=== PATIENT | male | born 1990 | race Caucasian/White ===

== ENCOUNTER 2024-07-19 22:35 | Emergency (ER) | payer OTHER, SELFPAY ==
[2024-07-19 22:38] VITALS: BP 106/70; PULSE 81; RESP 18; TEMP 36.5; O2SAT 98; BMI 21.7
--- NOTE | 2024-07-19 22:44 | EKG_ITS ---
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
--- NOTE | 2024-07-19 22:44 | DI.RAD.S_ITS ---
PROCEDURE: XR CHEST 1V INDICATIONS: chest pain TECHNIQUE: One view of the chest was acquired. COMPARISON: None. FINDINGS: Surgical changes and devices: Sternotomy. Lungs and pleura: Lungs are clear. No pleural effusions or pneumothorax. Mediastinum: Mediastinal contours appear normal. Heart size is normal. Bones and chest wall: No suspicious bony lesions. Overlying soft tissues appear unremarkable. IMPRESSION: No acute cardiopulmonary abnormality is seen. Dictated by: Dez Hong M.D. on 07/19/2024 at 23:08 Approved by: Dez Hong M.D. on 07/19/2024 at 23:11
[2024-07-19 23:00] VITALS: PULSE 65; RESP 16; O2SAT 98
--- NOTE | 2024-07-19 23:09 | ED_ITS ---
HPI - Chest Pain General Chief Complaint: Chest Pain Stated Complaint: hx heart surgery, chest pain similar to post surg Time Seen by Provider: 07/19/24 23:09 Source: patient Mode of arrival: Ambulatory Limitations: no limitations History of Present Illness HPI narrative: 33-year-old male with a past medical history of aortic bicuspid valve replacement in February 2023 at [facility] presenting for chest pain. States it started this morning, states it felt similar to when he was recovering from his heart surgery, he describes it as a burn/tight muscle that is persistent does endorse some nausea but no vomiting. He denies any other symptoms such as headache visual disturbances fever chills nausea vomiting abdominal pain or any other GI/ symptoms time. 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 Denies any trauma falls denies any excessive pushing pulling. Related Data Allergies Allergy/AdvReac Type Severity Reaction Status Date / Time No Known Drug Allergies Allergy Verified 07/19/24 22:38 Review of Systems Review of Systems Narrative: General: Denies fever, chills, weight loss HEENT: Denies headache, eye drainage, eye irritation, head trauma, sore throat, voice change Cardiovascular: Positive chest pain, denies palpitations, tachycardia Respiratory: Denies any shortness of breath, cough, wheeze, stridor GI/: Denies any abdominal pain, nausea, vomiting, diarrhea, bright red blood per rectum, melanotic stools, urinary frequency, urinary retention, dysuria, hematuria MSK: Denies any joint pain, muscle pains, swelling Skin: Denies any rashes, lesions, discoloration Neuro: Denies any headache, lightheadedness, dizziness, fainting, weakness Psych: Denies SI/HI Patient History Social History Smoking Status: Never smoker Smoking Status: Never smoker Exam Narrative Exam Narrative: General: Cooperative, well-developed, not in acute distress HEENT: Normocephalic, atraumatic, PERRLA, normal sclera, eyelids normal Neck: Active full range of motion, atraumatic Chest: Reproducible chest pain on palpation, midline scar to the chest consistent with a history of cardiac surgery Normal to inspection, negative crepitus, no overlying erythema ecchymosis Respiratory: Normal respiratory effort, not in acute respiratory distress, clear to auscultation bilaterally negative cough, wheeze, tachypnea, rhonchi, rales Cardiology: Regular rate rhythm negative gallop, murmur, rubs GI/: No tenderness to palpation, soft, non rigid, normal to inspection, exam deferred MSK: Full active range of motion in all 4 extremities, atraumatic, no tenderness to palpation of any bony prominences Skin: No rashes or lesions noted Neuro: Alert awake oriented x3, moves all 4 extremities spontaneously, cranial nerves intact, able to answer all questions appropriately follows commands appropriately Psych: Cooperative, negative suicidal or homicidal ideations Initial Vital Signs Initial Vital Signs: Vital Signs Temperature 97.7 F 07/19/24 22:38 Pulse Rate 81 07/19/24 22:38 Respiratory Rate 18 07/19/24 22:38 Blood Pressure 106/70 07/19/24 22:38 Pulse Oximetry 98 07/19/24 22:38 Oxygen Delivery Method Room Air 07/19/24 22:38 Course Orders Ordered: ED Orders 07/19/24 22:44 XR chest 1V Stat EKG-12 Lead Stat 07/19/24 23:45 Complete Blood Count AUTO DIFF Stat Comprehensive Metabolic Panel Stat Lipase Stat Magnesium Stat NT-proBNP (BNP-Adult 18+) Stat PTT Partial Thromboplastin Marcelo Stat Prothrombin Time INR Stat Troponin & CK Cardiac Panel Stat 07/20/24 02:10 Trop I [Troponin I] Stat Discontinued Medications Aspirin (Aspirin 81 Mg Chew Tab) 324 mg PO NOW ONE Stop: 07/19/24 22:45 Last Admin: 07/20/24 00:21 Dose: Not Given Documented By: MARIA TERESA Vital Signs Vital signs: Vital Signs - 8 hr 07/19/24 22:38 07/19/24 23:00 07/19/24 23:29 Temperature 97.7 F Pulse Rate 81 65 Respiratory Rate 18 16 Blood Pressure 106/70 106/65 Pulse Oximetry 98 98 Oxygen Delivery Method Room Air 07/19/24 23:29 07/19/24 23:30 07/19/24 23:30 Temperature Pulse Rate 64 62 Respiratory Rate 17 20 Blood Pressure 112/66 Pulse Oximetry 97 97 Oxygen Delivery Method 07/20/24 00:00 07/20/24 00:00 07/20/24 00:30 Temperature Pulse Rate 59 L Respiratory Rate 18 Blood Pressure 107/66 105/66 Pulse Oximetry 97 Oxygen Delivery Method 07/20/24 00:30 07/20/24 01:00 07/20/24 01:00 Temperature Pulse Rate 60 63 Respiratory Rate 19 17 Blood Pressure 105/62 Pulse Oximetry 96 96 Oxygen Delivery Method 07/20/24 01:30 07/20/24 01:30 07/20/24 02:00 Temperature Pulse Rate 55 L Respiratory Rate 17 Blood Pressure 115/59 L 105/67 Pulse Oximetry 98 Oxygen Delivery Method 07/20/24 02:00 07/20/24 02:30 07/20/24 02:30 Temperature Pulse Rate 54 L 56 L Respiratory Rate 19 18 Blood Pressure 106/66 Pulse Oximetry 97 98 Oxygen Delivery Method MDM - Chest Pain Differential Diagnosis Differential diagnosis: Likely atypical chest pain, st elevation myocardial infarction, costochondritis, chest pain and other (ACS, pneumonia, electrolyte abnormality) Lab Data 07/19/24 23:45 07/19/24 23:45 Labs: Lab Results 07/19/24 07/20/24 Range/Units 23:45 02:10 WBC 5.7 (4.5-11.0) X10^3/uL RBC 4.86 (4.5-5.9) X10^6/uL Hgb 14.5 (13.5-17.5) g/dL Hct 42.2 (41-53) % MCV 86.9 (80-100) fL MCH 29.8 (26-34) PG MCHC 34.3 (30-36) % RDW 13.6 (11.6-14.8) % Plt Count 224 (150-400) X10^3/uL Neut % (Auto) 52.9 (50-75) % Lymph % (Auto) 32.6 (25-40) % Hughes % (Auto) 11.4 (3-14) % Eos % (Auto) 2.7 (2-4) % Baso % (Auto) 0.4 (0-2) % Neut # (Auto) 3000 (9073-6166) /uL Lymph # (Auto) 1900 (0507-5108) /uL Hughes # (Auto) 700 (0-900) /uL Eos # (Auto) 200 (0-450) /uL Baso # (Auto) 0 (0-100) /uL PT 17.2 H (9.4-12.5) SECONDS INR 1.5 H (0.9-1.3) APTT 42 H (25.1-36.5) SECONDS Sodium 141 (137-145) mmol/L Potassium 3.9 (3.4-5.1) mmol/L Chloride 106 (98-107) mmol/L Carbon Dioxide 28 (22-32) mmol/L BUN 12 (9-20) mg/dL Creatinine 1.10 (0.66-1.25) mg/dL Estimated GFR > 60 (>60) mL/min BUN/Creatinine Ratio 10.9 (6-22) Glucose 96 (70-100) mg/dL Calcium 9.5 (8.4-10.2) mg/dL Magnesium 1.9 (1.6-2.3) mg/dL Total Bilirubin 1.2 (0.2-1.3) mg/dL AST 27 (17-59) IU/L ALT 18 (<50) IU/L Alkaline Phosphatase 67 (38-126) U/L Total Creatine Kinase 57 (55-170) U/L Troponin I < 0.012 0.013 (0.01-0.034) ng/mL NT-Pro-B Natriuret Pep 20 (<125) pg/mL Total Protein 6.9 (6.3-8.2) g/dL Albumin 4.6 (3.5-5.0) g/dL Globulin 2.3 (1.7-4.1) g/dL Albumin/Globulin Ratio 2.0 (1.0-2.8) Lipase 94 (23-300) U/L Imaging Data Chest x-ray: Radiologist's Impression: [place] [address] XRay Report Signed Patient: Giorgio Ayala MR#: [id number] : 1990 Acct:[id number] Age/Sex: 33 / M Date of Service: 07/19/24 Loc: ED Accession Number: [id number] Procedure: XR chest 1V Ordering Provider: Winston Magallon D.O. PROCEDURE: XR CHEST 1V INDICATIONS: chest pain TECHNIQUE: One view of the chest was acquired. COMPARISON: None. FINDINGS: Surgical changes and devices: Sternotomy. Lungs and pleura: Lungs are clear. No pleural effusions or pneumothorax. Mediastinum: Mediastinal contours appear normal. Heart size is normal. Bones and chest wall: No suspicious bony lesions. Overlying soft tissues appear unremarkable. IMPRESSION: No acute cardiopulmonary abnormality is seen. ECG Data Interpretation: EKG interpreted ED physician sinus 60 beats per minute QTC [address] changes no STEMI MDM Narrative Medical decision making narrative: 33-year-old male with a history of bicuspid valve replacement in February 2023 at [facility] presenting for left-sided chest pain. He states it feels like when he was recovering from his chest surgery, states it feels like it is in his muscles, states that it started this morning, states that moving does make it worse, staying still makes it better. He has been compliant with his warfarin, aspirin and metoprolol. 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 Patient EKG nonischemic in nature, chest x-ray without any acute cardiopulmonary abnormality, patient troponin negative x2, patient lab work otherwise unremarkable, patient was offered admission here for stress test echo, however he states that he would rather follow up with his regional branch manager, he states that they did give him a call and have a follow up already scheduled, I informed him to give them a call to try to schedule a stress test echo a little sooner. He verbalized understanding of this and agrees to being discharged home with outpatient follow up, patient with a heart score of 1 Discharge Plan Departure Patient Disposition: Home Clinical Impression: Chest pain Instructions: DI for Chest Pain Activity Restrictions/Additional Instructions: Please follow up with your regional branch manager and your primary care doctor Please read the discharge instructions sheet carefully and bring all papers to all doctor follow-up visits, as it may contain information that your doctor may want to see. Disease processes change and evolve, if your symptoms worsen or if you develop any new symptoms that are concerning to you please return for evaluation. Your evaluation today does not show any evidence of any life- threatening/serious illnesses requiring admission to the hospital or surgery. Please follow-up with your doctor for re-evaluation in approximately 1 day. Seek immediate medical attention for any worrisome symptoms. *If you do not have a primary care provider please contact the [facility] Resource line at [phone]. They will ask some questions about your medical history and help get you set up with a doctor in the community. Stand Alone Forms: Patient Portal/API/Survey
[2024-07-19 23:29] VITALS: BP 106/65; PULSE 64; RESP 17; O2SAT 97
[2024-07-19 23:30] VITALS: BP 112/66; PULSE 62; RESP 20; O2SAT 97
[2024-07-20] VITALS: BP 107/66; PULSE 59; RESP 18; O2SAT 97
[2024-07-20 00:07] LABS: Add Manual Diff / Slide Review NO; Basophils Absolute Auto 0 /uL (0-100); Basophils Percent Auto 0.4 % (0-2); Eosinophils Absolute Auto 200 /uL (0-450); Eosinophils Percent Auto 2.7 % (2-4); Hematocrit 42.2 % (41-53); Hemoglobin 14.5 g/dL (13.5-17.5); Lymphocytes Absolute Auto 1900 /uL (1100-4500); Lymphocytes Percent Auto 32.6 % (25-40); Mean Corpuscular HGB Conc 34.3 % (30-36); Mean Corpuscular Hemoglobin 29.8 PG (26-34); Mean Corpuscular Volume 86.9 fL (80-100); Monocytes Absolute Auto 700 /uL (0-900); Monocytes Percent Auto 11.4 % (3-14); Neutrophils Absolute Auto 3000 /uL (1500-7000); Neutrophils Percent Auto 52.9 % (50-75); Platelet Count 224 X10^3/uL (150-400); Red Blood Cell Count 4.86 X10^6/uL (4.5-5.9); Red Cell Distribution Width 13.6 % (11.6-14.8); White Blood Cell Count 5.7 X10^3/uL (4.5-11.0)
[2024-07-20 00:29] LABS: INR 1.5 (0.9-1.3); Prothrombin Time 17.2 SECONDS (9.4-12.5)
[2024-07-20 00:30] VITALS: BP 105/66; PULSE 60; RESP 19; O2SAT 96
[2024-07-20 00:32] LABS: Alanine Aminotransferase 18 IU/L (<50); Albumin 4.6 g/dL (3.5-5.0); Alkaline Phosphatase 67 U/L (38-126); Aspartate Aminotransferase 27 IU/L (17-59); BUN Creatinine Ratio 10.9 (6-22); Bilirubin Total 1.2 mg/dL (0.2-1.3); Blood Urea Nitrogen 12 mg/dL (9-20); Calcium 9.5 mg/dL (8.4-10.2); Carbon Dioxide 28 mmol/L (22-32); Chloride 106 mmol/L (98-107); Creatine Kinase 57 U/L (55-170); Estimated Glomerular Filt Rate > 60 mL/min (>60); Globulin 2.3 g/dL (1.7-4.1); Glucose 96 mg/dL (70-100); HEMOLYSIS 21 (0-50); Lipase 94 U/L (23-300); Magnesium 1.9 mg/dL (1.6-2.3); PTT Partial Thromboplastin Tim 42 SECONDS (25.1-36.5); Potassium 3.9 mmol/L (3.4-5.1); Sodium 141 mmol/L (137-145); Total Protein 6.9 g/dL (6.3-8.2)
[2024-07-20 00:44] LABS: NT-proBNP (BNP-Adult 18+) 20 pg/mL (<125); Troponin I < 0.012 ng/mL (0.01-0.034)
[2024-07-20 01:00] VITALS: BP 105/62; PULSE 63; RESP 17; O2SAT 96
[2024-07-20 01:30] VITALS: BP 115/59; PULSE 55; RESP 17; O2SAT 98
[2024-07-20 02:00] VITALS: BP 105/67; PULSE 54; RESP 19; O2SAT 97
[2024-07-20 02:30] VITALS: BP 106/66; PULSE 56; RESP 18; O2SAT 98
[2024-07-20 02:49] LABS: Troponin I 0.013 ng/mL (0.01-0.034)
== END 2024-07-20 03:07 | disposition home or self-care (01) ==
PROVIDERS: Emergency Provider Student in an Organized Health Care Education/Training Program
DX: R07.9 Chest pain, unspecified (principal); R11.0 Nausea
CPT/HCPCS: 36415; 71045; 80053; 82550; 83690; 83735; 83880; 84484; 85025; 85610; 85730; 93005; 93010; 99283; 99284